=== PATIENT | female | born 1945 | race Caucasian/White ===

== ENCOUNTER 2019-02-02 07:46 | Outpatient (CLI) | payer MEDICARE | END 2019-02-02 23:59 | disposition home or self-care (01) | LOC: CFH 07:46 | DX: Z12.31 Encounter for screening mammogram for malignant neoplasm of breast (principal); Z13.820 Encounter for screening for osteoporosis; N95.9 Unspecified menopausal and perimenopausal disorder | CPT/HCPCS: 77063; 77080; 77067 ==

== ENCOUNTER → 2020-03-31 | Outpatient (CLI) | payer MEDICARE, OTHER ==
[~2020-03-31] MED LIST: AMIODARONE PO; ASPI-496 PO; BENA40TA3 PO; BIOTIN PO; METF500T17 PO; NEXIUM PO
== END | disposition home or self-care (01) ==
LOC: CFH 11:14
DX: Z12.31 Encounter for screening mammogram for malignant neoplasm of breast (principal)
CPT/HCPCS: 77063; 77067

== ENCOUNTER 2020-07-21 07:24 | Outpatient (CLI) | payer OTHER, MEDICARE ==
[2020-07-21] MEDS ORDERED: REGADENOSON 0.4 MG/5 ML SYRINGE ONE (12:00)
== END 2020-07-21 23:59 | disposition home or self-care (01) ==
LOC: CFH 07:24
PROVIDERS: ATTEND Internal Medicine Cardiovascular Disease
DX: R07.9 Chest pain, unspecified (principal); I10 Essential (primary) hypertension; Z82.49 Family history of ischemic heart disease and other diseases of the circulatory system
CPT/HCPCS: 78452; 93017; 93306; 93356; A9502; J2785

== ENCOUNTER 2020-10-06 13:02 | Emergency (ER) | payer OTHER, MEDICARE ==
[2020-10-06 13:52] LABS: BASOPHILS % (AUTO) 1 % (0-1); EOSINOPHILS % (AUTO) 2 % (1-7); LYMPHOCYTES % (AUTO) 31 % (22-44); MEAN CORPUSCULAR HEMOGLOBIN 29.7 pg (27.0-34.8); MEAN PLATELET VOLUME 9.1 fL (7.4-10.4); MONOCYTES % (AUTO) 7 % (2-9); NEUTROPHILS % (AUTO) 60 % (42-75); PLATELET COUNT 210 x10^3/uL (130-400); RED BLOOD COUNT 5.01 x10^6/uL (3.82-5.3); RED CELL DISTRIBUTION WIDTH 13.6 % (9.6-15.2)
--- NOTE | 2020-10-06 13:59 | NUR ---
PT TO ROOM FROM [facility], GAIT STEADY. 74 YR OLD FEMALE HERE WITH C/O "MY CHEST GETS WORSE EVERY DAY. SINCE I WENT UPSTAIRS AND HAD ALL THOSE TESTS DONE (STESS) APPROX 1 MONTH AGO. IT LOOKED LIKE ON THE TESTS I HAD A MILD HEART ATTACK, I WAS SUPPOSE TO GO BACK IN NOV FOR FURTHER TESTING. CP FEELS LIKE THERE IS A BOULDER ON MY CHEST" PT PLACED ON MONITORS, SR WITH MULTIPLE PVC'S. AUTO BP AND PULSE OX IN PLACE.
[2020-10-06 14:02] LABS: ALANINE AMINOTRANSFERASE 22 U/L (12-78); ALBUMIN 4.1 g/dL (3.4-5.0); CALCIUM 9.4 mg/dL (8.5-10.1); CHLORIDE 110 mmol/L (98-107); CREATININE 1.09 mg/dL (0.55-1.02)
[2020-10-06 14:06] LABS: ALKALINE PHOSPHATASE 73 U/L (45-117); BILIRUBIN,TOTAL 0.5 mg/dL (0.2-1.0); TOTAL PROTEIN 7.4 g/dL (6.4-8.2)
[2020-10-06 14:10] LABS: MD NO
--- NOTE | 2020-10-06 14:10 | NUR ---
PER PTS REQUEST SPOKE WITH PTS GRANDDAUGHTER ASHLEY [phone]
[2020-10-06 14:14] VITALS: BP 165/72
[2020-10-06 14:17] LABS: ANION GAP 3 mmol/L (5-15)
[2020-10-06 14:25] LABS: TROPONIN I < 0.015 ng/mL (0.000-0.045)
--- NOTE | 2020-10-06 14:55 | NUR ---
PT TO [facility] FOR XRAY. DR BEST TO REVIEW XRAY PRIOR TO DC.
--- NOTE | 2020-10-06 15:15 | NUR ---
XRAY REVIEWED BY DR BEST. PT OK TO DC. PER PT REQUEST, SPOKE WITH PTS DAUGHTER OG, UPDATED ON POC. PT TO BE DC'D. UNDERSTANDING VERBALIZED.
== END 2020-10-06 15:32 | disposition home or self-care (01) ==
LOC: ED 15:08
DX: R07.89 Other chest pain (principal); R06.02 Shortness of breath; I44.7 Left bundle-branch block, unspecified; I49.3 Ventricular premature depolarization
CPT/HCPCS: 36415; 71046; 80053; 84484; 85025; 93005; 99285